=== PATIENT | male | born 1970 | race Caucasian/White ===

== ENCOUNTER 2020-03-19 06:59 | Outpatient (CLI) | payer OTHER ==
--- NOTE | 2020-03-19 10:02 | ULT ---
EXAM: US Gallbladder RUQ CLINICAL HISTORY: Elevated bilirubin. COMPARISON: None. FINDINGS: Pancreas: Obscured by bowel gas Liver:Hepatic parenchyma has a normal echotexture. No hepatic masses or intrahepatic biliary dilatati on. Right hepatic lobe: 16.8 cm Gallbladder: No sonographic evidence of cholelithiasis, gallbladder wall thickening or pericholecysti c fluid. Mccrary's sign:Negative Portal Vein: Patent. Appropriate directional flow Bile ducts: 0.23 common bile duct diameter Right kidney: No hydronephrosis. Right kidney measures 10.3 x 6.7 x 6.0 cm in length. IMPRESSION: No sonographic evidence of cholelithiasis or cholecystitis
== END 2020-03-19 07:00 | disposition home or self-care (01) ==
LOC: BICULT 06:59
PROVIDERS: ATTEND Internal Medicine Cardiovascular Disease
DX: R17 Unspecified jaundice (principal)
CPT/HCPCS: 76705

== ENCOUNTER 2020-03-26 07:04 | Outpatient (CLI) | payer OTHER ==
--- NOTE | 2020-03-26 07:57 | CT ---
CT ANGIOGRAM THORAX WITH IV CONTRAST AND 3-D RECONSTRUCTIONS CLINICAL INDICATION: Enlargement of the thoracic aorta noted on recent echocardiogram. COMPARISON: None FINDINGS: Pulmonary arteries: There is suboptimal timing of the contrast bolus for evaluation of the pulmonary arteries, but this examination was not tailored for evaluation of the pulmonary arteries. Aorta: The ascending aorta and the level of the aortic valve measures approximately 4.3 cm in greates t dimension. The proximal ascending thoracic aorta measures 4.2 cm in diameter with the thoracic aorta at the level of main pulmonary artery measuring 4 cm in diameter. The descending thoracic aorta measures 2.5 cm in diameter. There is no evidence of an aortic dissection. Lungs: A small approximately 5 mm groundglass nodule is seen in the right lower lobe (image 61, serie s 3). The lungs are otherwise clear without evidence of a pulmonary nodule, mass, or pleural effusion. Mediastinum: There is no evidence of lymphadenopathy. Thyroid gland: Normal in appearance where imaged. Osseous structures: No suspicious lytic or sclerotic osseous lesions are identified. There is slight wedge-shaped deformity involving the T12 vertebral body which may be related to physiological wedging. Degenerative changes are seen in the thoracic spine greater in the lower thoracic spine. Chest wall: No abnormality visualized. Upper abdomen: Subcentimeter too small to characterize hypodense lesion is seen near the dome of the liver. Remainder of the visualized upper abdomen demonstrates a normal CT appearance for phase of imaging. IMPRESSION: 1. Subtle 5 mm groundglass nodule right lower lobe. This is overall nonspecific. Follow-up evaluation in 6 months is recommended. 2. No evidence of a thoracic aortic aneurysm. However, the ascending thoracic aorta is ectatic with g reatest measurement at the level of the aortic valve measuring 4.3 cm. 3. Subcentimeter too small to characterize hepatic lesion near the dome of the liver.
[2020-03-26] MEDS ORDERED: Iopamidol-370 76% 500 ML 1 ML ONE (11:13)
== END 2020-03-26 07:05 | disposition home or self-care (01) ==
LOC: CT 07:04
PROVIDERS: ATTEND Internal Medicine Cardiovascular Disease
DX: I77.89 Other specified disorders of arteries and arterioles (principal); R91.1 Solitary pulmonary nodule; K76.9 Liver disease, unspecified
CPT/HCPCS: 71275; Q9967

== ENCOUNTER 2020-03-28 19:00 | Outpatient (CLI) | payer OTHER | END 2020-03-28 19:01 | disposition home or self-care (01) | LOC: SLEEPLAB 19:00 | PROVIDERS: ATTEND Family Medicine | DX: G47.33 Obstructive sleep apnea (adult) (pediatric) (principal) | CPT/HCPCS: 95811 ==

== ENCOUNTER 2021-06-24 08:22 | Outpatient (CLI) | payer OTHER ==
[2021-06-24] MEDS ORDERED: Iopamidol 370 76% 100 ML VIAL ONE (11:23)
== END 2021-06-24 08:23 | disposition home or self-care (01) ==
LOC: CT 08:22
PROVIDERS: ATTEND Internal Medicine Cardiovascular Disease
DX: I71.2 Thoracic aortic aneurysm, without rupture (principal)
CPT/HCPCS: 71275; Q9967

== ENCOUNTER 2021-09-08 15:21 | Outpatient (CLI) | payer OTHER ==
[2021-09-08 15:53] LABS: #Eosinphils 0.1 10x3/uL (0.0-0.5); #Monocytes 0.5 10x3/uL (0.0-1.1); #Neutrophils 3.8 10x3/uL (1.5-8.4); %Basophils 0.3 % (0.0-2.0); %Eosinophils 0.8 % (0.0-6.0); %Lymphocytes 27.4 % (18.0-47.0); %Monocytes 8.4 % (0.0-10.0); %Neutrophils 62.8 % (40.0-75.0); Mean Corpuscular HGB CONC 33.6 g/dL (32.0-36.0); Mean Corpuscular Hemoglobin 30.7 pg (27.0-33.0); Mean Corpuscular Volume 91.5 fl (81.2-95.1); Mean Platelet Volume 10.5 fl (7.4-10.4); Platelet Count 187 10x3/uL (150-450); Red Blood Cell (RBC) Count 4.23 10x6/uL (4.32-5.72); White Blood Cell (WBC) Count 6.1 10x3/uL (3.5-10.5)
[2021-09-08 16:05] LABS: Anion Gap 14 mmol/L (10-20); BUN (Urea Nitrogen) 13 mg/dL (8.4-25.7); Calc. Creatinine Clearance 0 mL/min (70-130); Calcium 9.2 mg/dL (7.8-10.44); Carbon Dioxide 26 mmol/L (22-29); Chloride 104 mmol/L (98-107); Glucose 94 mg/dL (70-105); Potassium 4.2 mmol/L (3.5-5.1); Sodium 140 mmol/L (136-145)
== END 2021-09-08 15:22 | disposition home or self-care (01) ==
LOC: LABBT 15:21
PROVIDERS: ATTEND Surgery
DX: Z01.812 Encounter for preprocedural laboratory examination (principal); K40.20 Bilateral inguinal hernia, without obstruction or gangrene, not specified as recurrent
CPT/HCPCS: 80048; 85025

== ENCOUNTER 2021-09-09 09:57 | Day surgery (SDC) | payer OTHER ==
[2021-09-08 11:41] VITALS: BMI 25.7
[2021-09-09] MEDS ORDERED: ceFAZolin 2 GM/DEX 5% 100 ML BAG ONE (10:35)
[2021-09-09] MEDS ORDERED: Bupivacaine 0.25% HCL 30 ML VIAL ONE (11:52)
[2021-09-09] MEDS ORDERED: Lidocaine 1% w/Epinephrine 1:100K 20 ML VIAL ONE (11:52)
[2021-09-09] MEDS ORDERED: Fentanyl 100 MCG/2 ML VIAL ONE (12:04)
[2021-09-09] MEDS ORDERED: Dexmedetomidine 200 MCG/2 ML VIAL ONE (12:04)
[2021-09-09] MEDS ORDERED: Lidocaine 1% PF 5 ML VIAL ONE (12:16)
[2021-09-09] MEDS ORDERED: Ondansetron PF 4 MG/2 ML Vial ONE (12:16)
[2021-09-09] MEDS ORDERED: Rocuronium Bromide 10 MG/ML (10ML VIAL) ONE (12:16)
[2021-09-09] MEDS ORDERED: Glycopyrrolate 0.2 MG/ML 5 ML SYRINGE ONE (12:16)
[2021-09-09] MEDS ORDERED: PROPOFOL 200 MG/20 ML VIAL ONE (12:16)
[2021-09-09] MEDS ORDERED: PHENYLEPHRINE-NS 100 MCG/ML 10 ML SYRINGE ONE (12:16)
[2021-09-09] MEDS ORDERED: Dexamethasone 20 MG/5 ML VIAL ONE (12:16)
[2021-09-09] MEDS ORDERED: Ketorolac Tromethamine 30 MG/ML VIAL ONE (12:16)
[2021-09-09] MEDS ORDERED: ePHEDrine 50 MG/ML VIAL ONE (12:16)
[2021-09-09] MEDS ORDERED: HYDROcodone/Acetaminophen 5/325 mg Tablet ONE (14:30)
== END 2021-09-09 15:00 | disposition home or self-care (01) ==
LOC: SDC 09:57
PROVIDERS: ATTEND Surgery
PROC: 0YUA4JZ Supplement Bilateral Inguinal Region with Synthetic Substitute, Percutaneous Endoscopic Approach (ICD-10-PCS; principal; 2021-09-09)
DX: K40.20 Bilateral inguinal hernia, without obstruction or gangrene, not specified as recurrent (principal); I10 Essential (primary) hypertension; G47.30 Sleep apnea, unspecified; I71.4 Abdominal aortic aneurysm, without rupture; E80.4 Gilbert syndrome; Z86.16 Personal history of COVID-19; Z79.899 Other long term (current) drug therapy; Z79.82 Long term (current) use of aspirin
CPT/HCPCS: C1781; J1100; J1885; J2405; J2704; J3010; J3490; S0020